=== PATIENT | female | born 1945 | race Caucasian/White ===

== ENCOUNTER 2019-03-23 20:09 | Emergency (ER) | payer BC, MEDICARE ==
[~2019-03-23] VITALS: Ht 157.5 cm; Wt 65.0 kg
[2019-03-23 20:27] VITALS: Ht 157.5 cm; Wt 65.0 kg
[2019-03-23] MEDS ORDERED: SOD CHLORIDE 0.9% 500 ML IV STA (23:02)
--- NOTE | 2019-03-23 23:05 | ERD ---
ER Documentation Chief Complaint Chief Complaint BL LE SWELLING X FEW DAYS WITH LEFT HEEL WOUND NOTICED THIS AM HPI This is a 74-year-old woman with multiple medical conditions dropped off by boarding care facility for recent left lower extremity redness, patient states she has had swelling in the legs for a couple weeks but the redness has been ongoing for about 3 to 4 days. Patient is mostly bedbound, she denies fevers or chills, no chest pain or shortness of breath, no recent antibiotic use although HPI was limited. ROS All systems reviewed and are negative except as per history of present illness. Allergies Allergies: Coded Allergies: Penicillins (Verified Allergy, Unknown, 03/23/19) PMhx/Soc Hypertension, obesity, dementia FmHx Family History: No diabetes Physical Exam Vitals Vital Signs Date Temp Pulse Resp B/P (MAP) Pulse Ox O2 O2 Flow FiO2 Time Delivery Rate 03/24/19 58 16 143/98 97 Room Air 00:00 (113) 03/23/19 98.4 69 18 125/63 99 20:27 (83) Physical Exam GENERAL: Well-developed, well-nourished, appears dehydrated, afebrile HEENT: Dry mucous membranes, pink conjunctiva, no cervical spine tenderness or step-off deformities NEURO: Alert and oriented x2, moving all extremity, able to answer simple questions and follow simple commands, no facial asymmetry or focal deficits CARDIAC: Regular rate and rhythm, no murmurs rubs or gallops LUNGS: Clear bilaterally no wheezing crackles or stridor SKIN: Warm and dry to touch, open blister to the left heel with large zone of surrounding skin erythema and induration concerning for cellulitis, no pustules or ecchymosis EXTREMITIES: No clubbing cyanosis, 3+ pitting edema in the lower extremities bilaterally, calves are symmetrical distal pulses equal and bilateral Result Diagram: 03/23/19 2325 03/23/19 2325 Results 24 hrs Laboratory Tests Test 03/23/19 23:14 03/23/19 23:25 Urine Color YELLOW Urine Clarity SLIGHTLY CLOUDY Urine pH 5.0 Urine Specific [place] 1.008 Urine Ketones NEGATIVE mg/dL Urine Nitrite NEGATIVE mg/dL Urine Bilirubin NEGATIVE mg/dL Urine Urobilinogen NEGATIVE mg/dL Urine Leukocyte Esterase 1+ Alfred/ul Urine Microscopic RBC 1 /HPF Urine Microscopic WBC 4 /HPF Urine Squamous Epithelial Cells FEW /HPF Urine Bacteria FEW /HPF Urine Hemoglobin NEGATIVE mg/dL Urine Glucose NEGATIVE mg/dL Urine Total Protein NEGATIVE mg/dl White Blood Count 5.4 10^3/ul Red Blood Count 2.40 10^6/ul Hemoglobin 7.0 g/dl Hematocrit 22.5 % Mean Corpuscular Volume 93.8 fl Mean Corpuscular Hemoglobin 29.2 pg Mean Corpuscular Hemoglobin Concent 31.1 g/dl Red Cell Distribution Width 14.0 % Platelet Count 157 10^3/UL Mean Platelet Volume 8.6 fl Immature Granulocytes % 3.500 % Neutrophils % 60.1 % Lymphocytes % 22.2 % Monocytes % 13.3 % Eosinophils % 0.7 % Basophils % 0.2 % Nucleated Red Blood Cells % 0.0 /100WBC Immature Granulocytes # 0.190 10^3/ul Neutrophils # 3.2 10^3/ul Lymphocytes # 1.2 10^3/ul Monocytes # 0.7 10^3/ul Eosinophils # 0.0 10^3/ul Basophils # 0.0 10^3/ul Nucleated Red Blood Cells # 0.0 10^3/ul Prothrombin Time 13.1 Sec Prothrombin Time Ratio 1.0 INR International Normalized Ratio 0.98 Activated Partial Thromboplast Time 36.4 Sec Sodium Level 138 mmol/L Potassium Level 3.5 mmol/L Chloride Level 99 mmol/L Carbon Dioxide Level 26 mmol/L Anion Gap 13 Blood Urea Nitrogen 48 mg/dl Creatinine 2.73 mg/dl Est Glomerular Filtrat Rate mL/min mL/min Glucose Level 120 mg/dl Calcium Level 9.6 mg/dl Total Bilirubin 0.3 mg/dl Direct Bilirubin 0.00 mg/dl Indirect Bilirubin 0.3 mg/dl Aspartate Amino Transf (AST/SGOT) 27 IU/L Alanine Aminotransferase (ALT/SGPT) 11 IU/L Alkaline Phosphatase 100 IU/L Total Protein 7.3 g/dl Albumin 3.8 g/dl Globulin 3.50 g/dl Albumin/Globulin Ratio 1.08 Lipase 188 U/L Current Medications Medications Dose Sig/Augustin Start Time Status Last (Trade) Ordered Route PRN Stop Time Admin Dose Reason Admin Ceftriaxone 50 ml @ ONCE ONCE 03/23/19 DC 03/23/19 Sodium 100 mls/hr IVPB 23:30 03/23/19 23:59 23:59 Vancomycin 250 ml @ ONCE ONCE 03/23/19 DC 03/24/19 HCl 125 mls/hr IVPB 23:30 03/24/19 00:36 01:29 Ibuprofen 600 mg ONCE ONCE 03/23/19 DC 03/23/19 (Motrin) PO 23:30 03/23/19 23:59 23:31 Sodium 500 ml @ Q1H STAT 03/23/19 DC 03/23/19 Chloride 500 mls/hr IV 23:02 03/24/19 23:59 00:01 Procedures/MDM IV line was established patient was placed on patient monitor rhythm strip revealed a sinus rhythm at about 80 bpm with upright P and T waves. Patient was afebrile 1 view chest x-ray performed, read by me there is mild congestion bilaterally, no acute infiltrates, no pneumothorax. I administered 500 cc normal saline IV, ibuprofen 600 mg p.o., ceftriaxone 1 g IV, vancomycin 1 g IV. CBC revealed anemia with a hemoglobin of 7, urinalysis reveals early UTI although cultures are pending I will follow-up. Patient will be admitted to telemetry setting at [facility] after speaking to Dr. Reynaga. Departure Diagnosis: Primary Impression: Peripheral edema Additional Impressions: Pressure ulcer of left heel Pressure injury stage: unspecified pressure injury stage Qualified Codes: L89.629 - Pressure ulcer of left heel, unspecified stage Cellulitis of foot Cellulitis, leg Laterality: left Qualified Codes: L03.116 - Cellulitis of left lower limb Anemia Anemia type: unspecified type Qualified Codes: D64.9 - Anemia, unspecified Condition: PRATIMA Araiza MD Mar 23, 2019 23:05
[2019-03-23] MEDS ORDERED: CEFTRIAXONE 1 GM/50 ML (PMX) 50 ML IVPB ONE (23:30)
[2019-03-23] MEDS ORDERED: VANCOMYCIN 1 GM (PMX) 250 ML IVPB ONE (23:30)
[2019-03-23] MEDS ORDERED: IBUPROFEN 600 MG TAB PO ONE (23:30)
[2019-03-24 03:55] VITALS: BP 93/63; PULSE 60; RESP 14
== END 2019-03-24 03:55 | disposition short-term general hospital (02) ==
LOC: E/R 20:09
DX: L89.629 Pressure ulcer of left heel, unspecified stage (principal); L03.116 Cellulitis of left lower limb; D64.9 Anemia, unspecified; R10.9 Unspecified abdominal pain
CPT/HCPCS: 71045; 80053; 81001; 83690; 85025; 85610; 85730; 87040; 87086; 96374; 96375; 99285; J0696; J3370; J7040